=== PATIENT | male | born 1960 | race Caucasian/White ===

== ENCOUNTER 2018-03-27 11:01 | Emergency (ER) | payer BC ==
[2018-03-27] MEDS ORDERED: Sodium Chloride 0.9% 10 ML Syringe FLUSH PRN (11:16)
[2018-03-27] MEDS ORDERED: cefTRIAXone 2 GM in Sodium Chloride 0.9% 50 ML IV ONE (11:18)
--- NOTE | 2018-03-27 11:20 | EDM.PDOC ---
ED HPI GENERAL MEDICAL PROBLEM - General Chief Complaint: ENT Problem Stated Complaint: INFECTED TOOTH, FACE SWOLLEN Time Seen by Provider: 03/27/18 11:05 Source of Information: Reports: Patient History Limitations: Reports: No Limitations - History of Present Illness INITIAL COMMENTS - FREE TEXT/NARRATIVE: fractured tooth, bottom right side; and noticed pain, swelling and ?fever yesterday significant swelling Decreased appetite is a smoker doesn't take any prescribed medications. Onset: Gradual Duration: Day(s): (5) Location: Reports: Head (right side, lower jaw) Quality: Reports: Ache, Throbbing Severity: Severe - Related Data Allergies Allergy/AdvReac Type Severity Reaction Status Date / Time No Known Allergies Allergy Verified 03/27/18 11:14 Home Meds: Home Meds Ibuprofen 400 mg PO ASDIRECTED PRN 09/25/16 [History] Past Medical History HEENT History: Reports: Impaired Vision Musculoskeletal History: Reports: Fracture - Infectious Disease History Infectious Disease History: Reports: Chicken Pox, Measles - Past Surgical History GI Surgical History: Reports: Hernia, Inguinal Social & Family History - Caffeine Use Caffeine Use: Reports: Coffee, Tea ED ROS GENERAL - Review of Systems Review Of Systems: See Below Constitutional: Reports: Fever, Fatigue, Decreased Appetite HEENT: Reports: Dental Pain, Other (jaw pain, right sided sinus pain) Respiratory: Reports: No Symptoms Cardiovascular: Reports: No Symptoms GI/Abdominal: Reports: No Symptoms Skin: Reports: No Symptoms Neurological: Reports: Headache ED EXAM, GENERAL - Physical Exam Exam: See Below Exam Limited By: No Limitations General Appearance: Alert, WD/WN Throat/Mouth: No Airway Compromise, Other (fractuered lower right molar, poor dentition, swelling to the right side of face, substantial) Head: Facial Swelling Neck: Normal Inspection, Supple, Non-Tender, Full Range of Motion Respiratory/Chest: Lungs Clear, Normal Breath Sounds Cardiovascular: Regular Rate, Rhythm GI/Abdominal: Normal Bowel Sounds Extremities: Normal Inspection, Normal Range of Motion Neurological: Alert, Oriented, CN II-XII Intact, Normal Cognition, Normal Gait Psychiatric: Normal Affect, Normal Mood Skin Exam: Warm, Dry Course - Vital Signs Last Recorded V/S: Last Vital Signs Temp 97.5 F 03/27/18 11:18 Pulse 89 03/27/18 11:18 Resp 16 03/27/18 11:18 BP 185/102 H 03/27/18 11:18 Pulse Ox 97 03/27/18 11:18 - Orders/Labs/Meds Orders: Active Orders 24 hr Category Date Time Status Peripheral IV Care [RC] . DIRECTED Care 03/27/18 11:18 Active Max Facial Sinus w Cont [CT] Stat Exams 03/27/18 11:16 Taken Peripheral IV Insertion Adult [OM.PC] Stat Oth 03/27/18 11:16 Ordered Labs: Laboratory Tests 03/27/18 03/27/18 Range/Units 11:34 11:34 WBC 11.1 H (4.5-11.0) K/uL RBC 4.80 (4.30-5.90) M/uL Hgb 15.5 H (12.0-15.0) g/dL Hct 44.1 (40.0-54.0) % MCV 92 (80-98) fL MCH 32 H (27-31) pg MCHC 35 (32-36) % Plt Count 221 (150-400) K/uL Neut % (Auto) 75 H (36-66) % Lymph % (Auto) 14 L (24-44) % Morrill % (Auto) 10 H (2-6) % Eos % (Auto) 1 L (2-4) % Baso % (Auto) 1 (0-1) % Sodium 134 L (140-148) mmol/L Potassium 3.9 (3.6-5.2) mmol/L Chloride 96 L (100-108) mmol/L Carbon Dioxide 27 (21-32) mmol/L Anion Gap 14.9 H (5.0-14.0) mmol/L BUN 8 (7-18) mg/dL Creatinine 0.7 L (0.8-1.3) mg/dL Est Cr Clr Drug Dosing TNP Estimated GFR (MDRD) > 60 (>60) Glucose 203 H (74-106) mg/dL Calcium 9.3 (8.5-10.1) mg/dL Total Bilirubin 1.3 H (0.2-1.0) mg/dL AST 53 H (15-37) U/L ALT 69 (12-78) U/L Alkaline Phosphatase 131 H (46-116) U/L Total Protein 7.4 (6.4-8.2) g/dL Albumin 3.8 (3.4-5.0) g/dL Globulin 3.6 H (2.3-3.5) g/dL Albumin/Globulin Ratio 1.1 L (1.2-2.2) Meds: Medications Discontinued Medications Generic Name Dose Route Start Last Admin Trade Name Nolberto PRN Reason Stop Dose Admin Dexamethasone 10 mg 03/27/18 13:29 03/27/18 13:38 Dexamethasone IVPUSH 03/27/18 13:30 10 mg ONETIME ONE Administration Ceftriaxone Sodium 2 gm/ 50 mls @ 100 mls/hr 03/27/18 11:18 03/27/18 12:32 Sodium Chloride IV 03/27/18 11:47 100 mls/hr ONETIME ONE Administration Sodium Chloride 100 mls @ 3.5 mls/sec 03/27/18 11:33 03/27/18 12:09 Normal Saline IV 03/27/18 11:34 2 mls/sec ONETIME ONE Administration Sodium Chloride 1,000 mls @ 999 mls/hr 03/27/18 12:30 03/27/18 12:32 Normal Saline IV 999 mls/hr ASDIRECTED WESLY Administration Iopamidol 100 ml 03/27/18 11:45 03/27/18 12:09 Isovue-300 (61%) IV 03/27/18 23:00 100 ml . DIRECTED WESLY Administration Sodium Chloride 10 ml 03/27/18 11:16 Saline Flush FLUSH ASDIRECTED PRN Keep Vein Open Sodium Chloride 10 ml 03/27/18 11:33 03/27/18 12:09 Saline Flush FLUSH 03/27/18 11:34 10 ml ONETIME ONE Administration - Re-Assessments/Exams Free Text/Narrative Re-Assessment/Exam: 03/27/18 12:[address] just went to CT Labs reviewed; 03/27/18 15:04 given 2 g of Rocephin 10mg IV decadron Departure - Departure Time of Disposition: 14:15 Disposition: Home, Self-Care 01 Condition: Fair Clinical Impression: Abscess, dental, Myositis Sinusitis Qualifiers: Sinusitis location: maxillary Chronicity: acute Recurrence: recurrent Qualified Code(s): J01.01 - Acute recurrent maxillary sinusitis - Discharge Information Instructions: Dental Abscess, [id number] Referrals: PCP,None [Primary Care Provider] - Forms: ED Department Discharge Additional Instructions: Please show up to the dental clinic at 8:15 tomorrow morning; Antibiotics as directed as well as the medrol dose yandel (will help with pain and swelling) If symptoms worsen, return to ER for further evaluation (difficulty swallowing) Do not drink or drive while taking pain medications, this can cause serious damage and even Your dental abscess is severe. Do not miss your dental appointment or you can also have serious health consequences and even . Push fluids ED Communication - ED Communication Date/Time Date: 03/27/18 (0579) - Discussed Case With (1) Discussed Case With (1): Other (ENT Dr. Hdz; recommendation for steroid, antibiotic. He needs to see oral surgeon but does recommend seeing dentist in the morning; as long as patient can swallow, he can go home but stressed the importance of being seen tomorrow.) - Problem List & Annotations (1) Abscess, dental SNOMED Code(s): 585521204 Code(s): K04.7 - PERIAPICAL ABSCESS WITHOUT SINUS Status: Acute Priority : High (2) Sinusitis SNOMED Code(s): 43676773 Code(s): J32.9 - CHRONIC SINUSITIS, UNSPECIFIED Status: Acute Priority: High Qualifiers: Sinusitis location: maxillary Chronicity: acute Recurrence: recurrent Qualified Code(s): J01.01 - Acute recurrent maxillary sinusitis - Problem List Review Problem List Initiated/Reviewed/Updated: Yes - My Orders Last 24 Hours: My Active Orders 03/27/18 11:16 Max Facial Sinus w Cont [CT] Stat Peripheral IV Insertion Adult [OM.PC] Stat 03/27/18 11:18 Peripheral IV Care [RC] . DIRECTED - Assessment/Plan Last 24 Hours: My Active Orders 03/27/18 11:16 Max Facial Sinus w Cont [CT] Stat Peripheral IV Insertion Adult [OM.PC] Stat 03/27/18 11:18 Peripheral IV Care [RC] . DIRECTED
[2018-03-27 11:25] VITALS: BP 185/102
[2018-03-27] MEDS ORDERED: Sodium Chloride 0.9% 100 ML IV ONE (11:33)
[2018-03-27] MEDS ORDERED: Sodium Chloride 0.9% 10 ML Syringe FLUSH ONE (11:33)
[2018-03-27] MEDS ORDERED: Iopamidol 612 MG/ML 100 ML Bottle IV SCH (11:45)
[2018-03-27] MEDS ORDERED: Sodium Chloride 0.9% 1,000 ML IV SCH (12:30)
[2018-03-27] MEDS ORDERED: Dexamethasone 4 MG/ML SDV IVPUSH ONE (13:29)
== END 2018-03-27 13:54 | disposition home or self-care (01) ==
LOC: JP.ED 11:01
DX: K04.7 Periapical abscess without sinus (principal); K03.81 Cracked tooth; M60.9 Myositis, unspecified; J01.01 Acute recurrent maxillary sinusitis
CPT/HCPCS: 36415; 70487; 80053; 85025; 96365; 96375; 99284; J0696; J1100; J7030; J7050; Q9967

== ENCOUNTER 2021-04-15 17:02 | Emergency (ER) | payer OTHER, BC ==
[2021-04-15] MEDS ORDERED: Lidocaine 5% 700 MG Patch TRDERM ONE (18:30)
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
[2021-04-15 18:52] VITALS: BP 166/98; PULSE 73
== END 2021-04-15 19:09 | disposition home or self-care (01) ==
LOC: JP.ED 17:02
DX: S13.4XXA Sprain of ligaments of cervical spine, initial encounter (principal); M62.830 Muscle spasm of back; I10 Essential (primary) hypertension; F17.200 Nicotine dependence, unspecified, uncomplicated; V89.2XXA Person injured in unspecified motor-vehicle accident, traffic, initial encounter; Y92.410 Unspecified street and highway as the place of occurrence of the external cause
CPT/HCPCS: 99283; A9270

== ENCOUNTER 2021-06-07 16:46 | Emergency (ER) | payer BC ==
[2021-06-07 17:01] VITALS: BP 127/88; PULSE 91
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
== END 2021-06-07 17:20 ==
LOC: JP.ED 16:46
DX: F10.120 Alcohol abuse with intoxication, uncomplicated (principal); I10 Essential (primary) hypertension
CPT/HCPCS: 99283

== ENCOUNTER 2022-06-18 15:20 | Emergency (ER) | payer BC ==
[2022-06-18 17:01] VITALS: BP 148/81; PULSE 76
== END 2022-06-18 20:23 | disposition home or self-care (01) ==
LOC: JP.ED 15:20
DX: K59.01 Slow transit constipation (principal); I10 Essential (primary) hypertension; E11.9 Type 2 diabetes mellitus without complications; F17.210 Nicotine dependence, cigarettes, uncomplicated; Z79.899 Other long term (current) drug therapy; Z79.4 Long term (current) use of insulin; Z79.82 Long term (current) use of aspirin; Z79.84 Long term (current) use of oral hypoglycemic drugs
CPT/HCPCS: 74018; 74018-26; 99284

== ENCOUNTER 2022-07-21 21:27 | Inpatient (IN) | payer BC ==
[~2022-07-21 21:27] MED LIST: 50% Dextrose in Water 50 ML Syringe ONE
[2022-07-21 22:33] LABS: ESTIMATED GFR 69 mL/min (>60)
[2022-07-21] MEDS ORDERED: 50% Dextrose in Water 50 ML Syringe IVPUSH PRN ×2 (22:48→22:50)
[2022-07-21] MEDS ORDERED: Glucagon,Human Recombinant 1 MG Vial IM PRN ×2 (22:48→22:50)
[2022-07-21] MEDS ORDERED: Insulin Regular, Human 100 Units/ML 3 ML Vial SUBCUT ONE (22:48)
[2022-07-21] MEDS ORDERED: Insulin Regular, Human 100 Units/ML 3 ML Vial IVPUSH ONE (22:50)
[2022-07-21] MEDS ORDERED: Potassium Chloride 20 MEQ in Premix Bag 1 BAG IV ONE (22:51)
[2022-07-21] MEDS ORDERED: Sodium Chloride 0.9% 1,000 ML IV SCH (23:00)
[2022-07-21] MEDS ORDERED: Dextrose 5% in Water 1,000 ML IV SCH (23:00)
[2022-07-21] MEDS ORDERED: Potassium Chloride 10 MEQ in Premix Bag 1 BAG IV ONE ×2 (23:19→23:30)
[2022-07-21] MEDS ORDERED: Hyaluronidase, Human Recombinant 150 Units/1 ML SDV SUBCUT ONE (23:45)
[2022-07-22] MEDS: Hyaluronidase, Human Recombinant 150 Units/1 ML SDV SUBCUT ONE ×2 (00:01→04:20)
[2022-07-22] MEDS ORDERED: methylPREDNISolone Sodium Succinate 125 MG/2 ML SDV IVPUSH ONE (00:04)
[2022-07-22] MEDS ORDERED: Potassium Chloride 10 MEQ in Premix Bag 1 BAG IV ONE (00:30)
[2022-07-22 00:49] LABS: ESTIMATED GFR 110 mL/min (>60)
[2022-07-22] MEDS ORDERED: Nicotine 14 MG/24 Hr Patch TRDERM ONE (01:14)
[2022-07-22] MEDS ORDERED: Ondansetron 4 MG Tab.DIS PO PRN (03:21)
[2022-07-22] MEDS ORDERED: Magnesium Hydroxide 400 MG/5 ML Susp 30 ML Cup PO PRN (03:21)
[2022-07-22] MEDS ORDERED: Ondansetron 4 MG/2 ML SDV IV PRN (03:21)
[2022-07-22] MEDS ORDERED: Nicotine 14 MG/24 Hr Patch TRDERM PRN (03:21)
[2022-07-22] MEDS ORDERED: Albuterol 0.083% 2.5 MG/3 ML Neb Soln NEB PRN (03:21)
[2022-07-22] MEDS: NS + KCl 20mEq/L 1,000 ML IV SCH ×2 (03:38→15:59)
[2022-07-22] MEDS: Potassium Chloride 10 MEQ in Premix Bag 1 BAG IV SCH ×3 (03:40→06:20)
[2022-07-22] MEDS ORDERED: Iopamidol 612 MG/ML 100 ML Bottle IV STA (05:01)
[2022-07-22] MEDS ORDERED: Sodium Chloride 0.9% 50 ML IV STA (05:02)
[2022-07-22] MEDS: Rosuvastatin 10 MG Tab PO SCH (08:23)
[2022-07-22] MEDS: Aspirin 81 MG Tab.Chew PO SCH (08:23)
[2022-07-22] MEDS ORDERED: Glucagon,Human Recombinant 1 MG Vial IM PRN ×3 (09:11→13:57)
[2022-07-22] MEDS ORDERED: Insulin Lispro 100 Unit/ML 3 ML KwikPen SUBCUT ONE ×3 (09:30→13:57)
[2022-07-22] MEDS: Magnesium Sulfate/Water 2 GM in Premix Bag 1 BAG IV SCH ×2 (10:05→15:57)
[2022-07-22] MEDS ORDERED: 50% Dextrose in Water 50 ML Syringe IVPUSH PRN ×2 (10:16→13:57)
[2022-07-22] MEDS: Acetaminophen 325 MG Tab PO PRN ×2 (10:54→21:27)
[2022-07-22] MEDS ORDERED: Hydrocortisone Sodium Succinate 100 MG/2 ML SDV IVPUSH ONE (13:33)
[2022-07-22] MEDS: Insulin Lispro 100 Unit/ML 3 ML KwikPen SUBCUT SCH ×2 (16:40→21:21)
[2022-07-22] MEDS: Pantoprazole 40 MG Vial IVPUSH SCH (17:17)
[2022-07-23] MEDS: NS + KCl 20mEq/L 1,000 ML IV SCH ×2 (01:08→07:52)
[2022-07-23] MEDS: Pantoprazole 40 MG Vial IVPUSH SCH (05:41)
[2022-07-23 05:47] LABS: ESTIMATED GFR 110 mL/min (>60)
[2022-07-23] MEDS ORDERED: Glycopyrrolate 0.2 MG/ML 2 ML SDV IVPUSH ONE ×2 (08:30→11:30)
[2022-07-23] MEDS ORDERED: Propofol 200 MG/20 ML SDV ONE (08:56)
[2022-07-23] MEDS ORDERED: Midazolam 1 MG/ML 2 ML SDV ONE (08:56)
[2022-07-23] MEDS ORDERED: Glycopyrrolate 0.2 MG/ML 2 ML SDV ONE (09:12)
[2022-07-23] MEDS ORDERED: Glucagon,Human Recombinant 1 MG Vial IM PRN (10:50)
[2022-07-23] MEDS ORDERED: 50% Dextrose in Water 50 ML Syringe IVPUSH PRN (10:50)
[2022-07-23] MEDS: Insulin Lispro 100 Unit/ML 3 ML KwikPen SUBCUT SCH ×4 (11:01→21:12)
[2022-07-23] MEDS: Aspirin 81 MG Tab.Chew PO SCH (11:04)
[2022-07-23] MEDS: Rosuvastatin 10 MG Tab PO SCH (11:04)
[2022-07-23] MEDS ORDERED: Potassium Chloride 20 MEQ Tab.ER PO ONE (12:15)
[2022-07-23] MEDS ORDERED: Insulin Lispro Protamine/Lispro 75-25 100 Units/ML 10 ML Vial SUBCUT SCH (16:30)
[2022-07-23] MEDS ORDERED: metFORMIN 500 MG Tab PO SCH (17:00)
[2022-07-24] MEDS ORDERED: Pantoprazole 40 MG Tab.CR PO SCH (07:30)
[2022-07-24] MEDS: 50% Dextrose in Water 50 ML Syringe IVPUSH PRN ×4 (07:31→12:49)
[2022-07-24] MEDS ORDERED: Morphine 2 MG/ML SYRINGE IVPUSH ONE (08:31)
[2022-07-24 09:03] LABS: ESTIMATED GFR 110 mL/min (>60)
[2022-07-24] MEDS ORDERED: Sodium Chloride 0.9% 1,000 ML IV SCH (09:15)
[2022-07-24] MEDS ORDERED: Dextrose 5%-0.9% NaCl 1,000 ML IV SCH ×3 (09:15→14:45)
[2022-07-24] MEDS ORDERED: Succinylcholine 200 MG/10 ML MDV ONE (09:22)
[2022-07-24] MEDS ORDERED: Propofol 200 MG/20 ML SDV ONE (09:22)
[2022-07-24] MEDS ORDERED: Morphine 2 MG/ML SYRINGE IVPUSH PRN (09:41)
[2022-07-24] MEDS ORDERED: Sodium Chloride 0.9% 100 ML IV ONE (09:58)
[2022-07-24] MEDS ORDERED: Sodium Chloride 0.9% 10 ML Syringe FLUSH PRN (09:58)
[2022-07-24] MEDS ORDERED: Heparin Sodium 5,000 UNITS in Sodium Chloride 0.9% 500 ML IV SCH (10:00)
[2022-07-24] MEDS ORDERED: Iopamidol 755 Mg/ML 100 ML Bottle IV SCH (10:00)
[2022-07-24] MEDS: propofoL 100 ML IV SCH ×2 (10:01→22:04)
[2022-07-24] MEDS: Levofloxacin/Dextrose 5%-Water 750 MG in Premix Bag 1 BAG IV SCH (10:02)
[2022-07-24] MEDS: Albuterol/Ipratropium 3.0-0.5 MG/3 ML Neb Soln NEB SCH ×3 (10:39→21:52)
[2022-07-24] MEDS ORDERED: Pantoprazole 40 MG Vial IVPUSH SCH (11:00)
[2022-07-24] MEDS ORDERED: 50% Dextrose in Water 50 ML Syringe IVPUSH ONE (12:08)
[2022-07-24] MEDS: Insulin Lispro 100 Unit/ML 3 ML KwikPen SUBCUT SCH ×2 (13:02→19:12)
[2022-07-24] MEDS ORDERED: DEXTROSE IV SCH ×6 (13:30→18:00)
[2022-07-24] MEDS ORDERED: WATER IV SCH ×6 (13:30→18:00)
[2022-07-24] MEDS ORDERED: SODIUM CHLORIDE IV SCH ×6 (13:30→18:00)
[2022-07-24] MEDS ORDERED: Norepinephrine Bit/D5W Premix 250 ML ONE (17:52)
[2022-07-24] MEDS: Norepinephrine Bit/D5W Premix 4 MG in Premix Bag 1 BAG IV SCH (17:57)
[2022-07-24] MEDS ORDERED: Sodium Chloride 23.4% 154 MEQ in Dextrose 10% in Water 1,000 ML IV SCH ×2 (18:00)
[2022-07-24] MEDS: Hydrocortisone Sodium Succinate 100 MG/2 ML SDV IVPUSH SCH (18:10)
[2022-07-24] MEDS: SODIUM CHLORIDE IV SCH (20:20)
[2022-07-24] MEDS: WATER IV SCH (20:20)
[2022-07-24] MEDS: DEXTROSE IV SCH (20:20)
[2022-07-25] MEDS ORDERED: Norepinephrine Bit/D5W Premix 250 ML ONE (00:15)
[2022-07-25] MEDS: Insulin Lispro 100 Unit/ML 3 ML KwikPen SUBCUT SCH ×2 (00:22→06:21)
[2022-07-25] MEDS: SODIUM CHLORIDE IV SCH ×4 (00:22→07:03)
[2022-07-25] MEDS: WATER IV SCH ×4 (00:22→07:03)
[2022-07-25] MEDS: DEXTROSE IV SCH ×4 (00:22→07:03)
[2022-07-25] MEDS: Norepinephrine Bit/D5W Premix 4 MG in Premix Bag 1 BAG IV SCH ×3 (00:50→11:25)
[2022-07-25 05:35] LABS: ESTIMATED GFR 105 mL/min (>60)
[2022-07-25] MEDS ORDERED: SODIUM CHLORIDE IV SCH (06:00)
[2022-07-25] MEDS ORDERED: DEXTROSE IV SCH (06:00)
[2022-07-25] MEDS ORDERED: WATER IV SCH (06:00)
[2022-07-25] MEDS: Hydrocortisone Sodium Succinate 100 MG/2 ML SDV IVPUSH SCH (06:20)
[2022-07-25] MEDS ORDERED: Magnesium Sulfate/Water 2 GM in Premix Bag 3 BAG IV SCH (06:30)
[2022-07-25] MEDS: Albuterol/Ipratropium 3.0-0.5 MG/3 ML Neb Soln NEB SCH ×3 (06:59→11:10)
[2022-07-25] MEDS ORDERED: Magnesium Sulfate/Water 50 ML IV SCH (07:00)
[2022-07-25] MEDS ORDERED: Magnesium Sulfate/Water 2 GM in Premix Bag 1 BAG IV SCH (08:00)
[2022-07-25] MEDS: propofoL 100 ML IV SCH (08:17)
[2022-07-25] MEDS: Levofloxacin/Dextrose 5%-Water 750 MG in Premix Bag 1 BAG IV SCH (10:06)
[2022-07-25] MEDS ORDERED: Albuterol/Ipratropium 3.0-0.5 MG/3 ML Neb Soln NEB ONE (11:08)
[2022-07-25] MEDS ORDERED: Albuterol/Ipratropium 3.0-0.5 MG/3 ML Neb Soln ONE (11:08)
[2022-07-25 13:24] VITALS: BP 93/57; PULSE 95
[2022-07-28 11:11] LABS: HBSAG SCREEN Negative (Negative); HCV AB <0.1 s/co ratio (0.0-0.9); HEP A AB, IGM Negative (Negative); HEP B CORE AB, IGM Negative (Negative)
== END 2022-07-25 13:12 | DRG 420 ==
LOC: JP.ED 21:27 → UNDOADMIN 07-22 02:09 → JP.ICU 07-22 02:09
PROVIDERS: ADMIT Internal Medicine; ATTEND Internal Medicine
PROC: 5A1935Z Respiratory Ventilation, Less than 24 Consecutive Hours (ICD-10-PCS; principal; 2022-07-24)
PROC: 0BH17EZ Insertion of Endotracheal Airway into Trachea, Via Natural or Artificial Opening (ICD-10-PCS; 2022-07-24)
PROC: 03HB33Z Insertion of Infusion Device into Right Radial Artery, Percutaneous Approach (ICD-10-PCS; 2022-07-24)
PROC: 3E033XZ Introduction of Vasopressor into Peripheral Vein, Percutaneous Approach (ICD-10-PCS; 2022-07-24)
DX: E11.649 Type 2 diabetes mellitus with hypoglycemia without coma (principal); J96.01 Acute respiratory failure with hypoxia; J69.0 Pneumonitis due to inhalation of food and vomit; J96.02 Acute respiratory failure with hypercapnia; J90 Pleural effusion, not elsewhere classified; N17.9 Acute kidney failure, unspecified; E87.1 Hypo-osmolality and hyponatremia; E87.6 Hypokalemia; Z20.822 Contact with and (suspected) exposure to COVID-19; Z68.1 Body mass index [BMI] 19.9 or less, adult; H54.7 Unspecified visual loss; K59.09 Other constipation; I10 Essential (primary) hypertension; R63.4 Abnormal weight loss; E11.65 Type 2 diabetes mellitus with hyperglycemia; Z79.82 Long term (current) use of aspirin; Z79.4 Long term (current) use of insulin; Z79.84 Long term (current) use of oral hypoglycemic drugs; Z98.49 Cataract extraction status, unspecified eye
CPT/HCPCS: 36415; 36600; 51702; 70450; 71045; 71045-26; 71275; 71275-26; 74177; 74181; 74181-26; 80048; 80053; 80074; 80305-QW; 80307; 81001; 82105; 82533; 82550; 82728; 82803; 82947; 83550; 83605; 83735; 84443; 84484; 85025; 85027; 85379; 86140; 86618; 87081; 93005; 94002; 94003; 94640; 97110-GP; 97163-GP; A9270-GY; C9113; J0330; J0713; J1644; J1720; J1815; J1815-GY; J1956; J2250; J2270; J2704; J2930; J3470; J3475; J3480; J3490; J7030; J7040; J7060; J7620; Q9967; U0002

== ENCOUNTER 2022-11-08 14:08 | Emergency (ER) | payer BC ==
[2022-11-08] MEDS ORDERED: Magnesium Sulfate/Water 2 GM in Premix Bag 1 BAG IV ONE (15:35)
[2022-11-08] MEDS ORDERED: Potassium Chloride 20 MEQ Tab.ER PO ONE (15:35)
[2022-11-08] MEDS ORDERED: Dextrose 5%-0.9% NaCl with KCl 1,000 ML IV SCH (15:45)
[2022-11-08 17:57] VITALS: BP 145/87; PULSE 70
== END 2022-11-08 18:10 | disposition home or self-care (01) ==
LOC: JP.ED 14:08
DX: E11.649 Type 2 diabetes mellitus with hypoglycemia without coma (principal); E46 Unspecified protein-calorie malnutrition; A08.4 Viral intestinal infection, unspecified; M62.81 Muscle weakness (generalized); E87.6 Hypokalemia; E87.1 Hypo-osmolality and hyponatremia; E83.110 Hereditary hemochromatosis; I10 Essential (primary) hypertension; J44.9 Chronic obstructive pulmonary disease, unspecified; F17.210 Nicotine dependence, cigarettes, uncomplicated; Z79.82 Long term (current) use of aspirin; Z79.4 Long term (current) use of insulin; Z79.899 Other long term (current) drug therapy; Z74.09 Other reduced mobility; Z68.1 Body mass index [BMI] 19.9 or less, adult
CPT/HCPCS: 36415; 80048; 82947; 83735; 84443; 85025; 96365; 96366; 96368; 99284; A9270; J3475; J3480

== ENCOUNTER 2024-12-28 13:53 | Inpatient (IN) | payer MEDICARE, OTHER ==
[2024-12-28 14:42] LABS: BASOPHILS ABSOLUTE AUTO 0.04 K/uL (0.00-0.10); BASOPHILS PERCENT AUTO 0.3 % (0.1-1.3); EOSINOPHILS PERCENT AUTO 0.1 % (0.0-5.4); HEMATOCRIT 38.4 % (38.4-49.7); HEMOGLOBIN 12.9 g/dL (12.9-16.9); IMMATURE GRAN ABSOLUTE AUTO 0.07 K/uL (0.00-0.23); IMMATURE GRAN PERCENT AUTO 0.5 % (0.0-0.7); LYMPHOCYTES ABSOLUTE AUTO 1.06 K/uL (0.8-3.3); LYMPHOCYTES PERCENT AUTO 7.4 % (11.4-47.7); MEAN CORPUSCULAR HEMOGLOBIN 30.9 pg (31.6-35.5); MEAN CORPUSCULAR HGB CONC 33.6 g/dL (31.6-35.5); MEAN CORPUSCULAR VOLUME 91.9 fL (81.4-99.0); MONOCYTES ABSOLUTE AUTO 0.91 K/uL (0.20-0.90); MONOCYTES PERCENT AUTO 6.3 % (3.3-12.6); NEUTROPHILS ABSOLUTE AUTO 12.26 K/uL (1.0-7.6); NEUTROPHILS PERCENT AUTO 85.4 % (40.0-78.1); PLATELET COUNT,PLT 384 K/uL (130-375); RED BLOOD CELL COUNT 4.18 M/uL (4.14-5.76); WHITE BLOOD CELL COUNT,WBC 14.4 K/uL (3.2-11.0)
[2024-12-28 14:43] LABS: EOSINOPHILS ABSOLUTE AUTO 0.02 K/uL (0.00-0.40)
[2024-12-28 15:06] LABS: ANION GAP 9.7 mmol/L (5.0-14.0); BLOOD UREA NITROGEN,BUN 10 mg/dL (7-18); CALCIUM 9.2 mg/dL (8.5-10.1); CARBON DIOXIDE,CO2 31 mmol/L (21-32); CHLORIDE,CL 96 mmol/L (100-108); CREATININE 0.7 mg/dL (0.8-1.3); EST CRCL DRUG DOSING (CG) 70.45 mL/min; ESTIMATED GFR 103 mL/min (>60); GLUCOSE RANDOM 270 mg/dL (74-106); POTASSIUM,K 3.7 mmol/L (3.6-5.2); SODIUM,NA 133 mmol/L (140-148); TROPONIN I HIGH SENSITIVITY < 4.0 pg/mL (<=60.3)
[2024-12-28 15:08] LABS: LACTIC ACID 1.5 mmol/L (0.4-2.0)
[2024-12-28] MEDS: cefTRIAXone 2 GM in Sodium Chloride 0.9% 50 ML IV ONE (15:22)
[2024-12-28] MEDS: Sodium Chloride 0.9% 1,000 ML IV ONE (15:22)
[2024-12-28] MEDS: Sodium Chloride 0.9% 10 ML Syringe FLUSH PRN (15:23)
[2024-12-28] MEDS: Sodium Chloride 0.9% 80 ML IV SCH (15:52)
[2024-12-28] MEDS: Iopamidol 612 MG/ML 100 ML Bottle IV PRN (15:52)
[2024-12-28] MEDS ORDERED: LORazepam 2 MG/ML SDV IVPUSH PRN (16:55)
[2024-12-28] MEDS ORDERED: Albuterol 0.083% 2.5 MG/3 ML Neb Soln NEB PRN (16:55)
[2024-12-28] MEDS ORDERED: Acetaminophen/HYDROcodone 325-5 MG Tab PO PRN (16:55)
[2024-12-28] MEDS ORDERED: Morphine 2 MG/ML SYRINGE IVPUSH PRN (16:55)
[2024-12-28] MEDS ORDERED: Magnesium Hydroxide 400 MG/5 ML Susp 30 ML Cup PO PRN (16:55)
[2024-12-28] MEDS ORDERED: Sennosides/Docusate Sodium 50-8.6 MG Tab PO PRN (16:55)
[2024-12-28] MEDS ORDERED: Ondansetron 4 MG/2 ML SDV IV PRN (16:55)
[2024-12-28] MEDS ORDERED: Ondansetron 4 MG Tab.DIS PO PRN (16:55)
[2024-12-28] MEDS ORDERED: Insulin Lispro 100 Unit/ML 3 ML KwikPen SUBCUT SCH (17:15)
[2024-12-28 17:17] LABS: HEMOGLOBIN A1C 9.2 % (4.5-6.2)
[2024-12-28] MEDS: Ampicillin/Sulbactam Na 3 GM in Sodium Chloride 0.9% 100 ML IV SCH (18:08)
[2024-12-28] MEDS: Sodium Chloride 0.9% 1,000 ML IV SCH (18:08)
[2024-12-28] MEDS: Sodium Chloride 0.9% 10 ML Syringe FLUSH ONE (19:40)
[2024-12-28] MEDS: Magnesium Oxide 400 MG Tab PO SCH (20:51)
[2024-12-28] MEDS: Melatonin 3 MG Tab PO SCH (20:51)
[2024-12-28] MEDS: Acetaminophen 325 MG Tab PO PRN (23:43)
[2024-12-29 06:07] LABS: HEMATOCRIT 35.7 % (38.4-49.7); HEMOGLOBIN 11.8 g/dL (12.9-16.9); MEAN CORPUSCULAR HEMOGLOBIN 30.3 pg (31.6-35.5); MEAN CORPUSCULAR HGB CONC 33.1 g/dL (31.6-35.5); MEAN CORPUSCULAR VOLUME 91.8 fL (81.4-99.0); RED BLOOD CELL COUNT 3.89 M/uL (4.14-5.76); WHITE BLOOD CELL COUNT,WBC 14.1 K/uL (3.2-11.0)
[2024-12-29 06:27] LABS: A/G RATIO 0.4 (1.2-2.2); ALANINE AMINOTRANSFERASE,ALT 17 U/L (12-78); ALBUMIN 1.7 g/dL (3.4-5.0); ALKALINE PHOSPHATASE 108 U/L (46-116); ASPARTATE AMNIOTRANSFERASE,AST 33 U/L (15-37); BILIRUBIN TOTAL 0.3 mg/dL (0.2-1.0); BLOOD UREA NITROGEN,BUN 7 mg/dL (7-18); C-REACTIVE PROTEIN 10.52 mg/dL (<0.50); CALCIUM 8.3 mg/dL (8.5-10.1); CARBON DIOXIDE,CO2 28 mmol/L (21-32); CHLORIDE,CL 100 mmol/L (100-108); CREATININE 0.5 mg/dL (0.8-1.3); EST CRCL DRUG DOSING (CG) 98.63 mL/min; ESTIMATED GFR 114 mL/min (>60); GLUCOSE RANDOM 98 mg/dL (74-106); POTASSIUM,K 3.3 mmol/L (3.6-5.2); PROTEIN TOTAL,TP 5.8 g/dL (6.4-8.2); SODIUM,NA 139 mmol/L (140-148)
[2024-12-29 06:30] LABS: ANION GAP 14.3 mmol/L (5.0-14.0)
[2024-12-29] MEDS: Insulin NPH HUM/REG Insulin HM 100 UNIT/ML 3 ML Vial SQ SCH (08:20)
[2024-12-29] MEDS: Aspirin 81 MG Tab.Chew PO SCH (08:22)
[2024-12-29] MEDS: Multivitamins with Iron/Calcium/Folic Acid/Minerals Tab PO SCH (08:22)
[2024-12-29] MEDS: Vitamin B Complex Tab PO SCH (08:22)
[2024-12-29] MEDS: atorvaSTATin 10 MG Tab PO SCH (09:12)
[2024-12-29] MEDS: Potassium Chloride 20 MEQ Tab.ER PO SCH (10:55)
[2024-12-29] MEDS: Nicotine 21 MG/24 Hr Patch TRDERM SCH (22:07)
[2024-12-30 07:43] LABS: BASOPHILS ABSOLUTE AUTO 0.07 K/uL (0.00-0.10); BASOPHILS PERCENT AUTO 0.5 % (0.1-1.3); EOSINOPHILS ABSOLUTE AUTO 0.21 K/uL (0.00-0.40); EOSINOPHILS PERCENT AUTO 1.5 % (0.0-5.4); HEMATOCRIT 35.7 % (38.4-49.7); HEMOGLOBIN 11.9 g/dL (12.9-16.9); IMMATURE GRAN ABSOLUTE AUTO 0.06 K/uL (0.00-0.23); IMMATURE GRAN PERCENT AUTO 0.4 % (0.0-0.7); LYMPHOCYTES ABSOLUTE AUTO 0.76 K/uL (0.8-3.3); LYMPHOCYTES PERCENT AUTO 5.4 % (11.4-47.7); MEAN CORPUSCULAR HEMOGLOBIN 30.5 pg (31.6-35.5); MEAN CORPUSCULAR HGB CONC 33.3 g/dL (31.6-35.5); MEAN CORPUSCULAR VOLUME 91.5 fL (81.4-99.0); MONOCYTES ABSOLUTE AUTO 0.68 K/uL (0.20-0.90); MONOCYTES PERCENT AUTO 4.8 % (3.3-12.6); NEUTROPHILS PERCENT AUTO 87.4 % (40.0-78.1); PLATELET COUNT,PLT 317 K/uL (130-375); WHITE BLOOD CELL COUNT,WBC 14.1 K/uL (3.2-11.0)
[2024-12-30 07:58] LABS: A/G RATIO 0.4 (1.2-2.2); ALANINE AMINOTRANSFERASE,ALT 24 U/L (12-78); ALBUMIN 1.6 g/dL (3.4-5.0); ALKALINE PHOSPHATASE 116 U/L (46-116); ANION GAP 11.8 mmol/L (5.0-14.0); ASPARTATE AMNIOTRANSFERASE,AST 37 U/L (15-37); BILIRUBIN TOTAL 0.2 mg/dL (0.2-1.0); BLOOD UREA NITROGEN,BUN 5 mg/dL (7-18); C-REACTIVE PROTEIN 9.24 mg/dL (<0.50); CALCIUM 8.2 mg/dL (8.5-10.1); CARBON DIOXIDE,CO2 29 mmol/L (21-32); CHLORIDE,CL 97 mmol/L (100-108); CREATININE 0.5 mg/dL (0.8-1.3); EST CRCL DRUG DOSING (CG) 98.63 mL/min; ESTIMATED GFR 114 mL/min (>60); GLUCOSE RANDOM 156 mg/dL (74-106); POTASSIUM,K 3.8 mmol/L (3.6-5.2); PROTEIN TOTAL,TP 5.8 g/dL (6.4-8.2); SODIUM,NA 134 mmol/L (140-148)
[2024-12-30] MEDS: metroNIDAZOLE/Normal Saline 500 MG in Premix Bag 1 BAG IV SCH (12:06)
[2024-12-30] MEDS: cefTRIAXone 2 GM in Sodium Chloride 0.9% 50 ML IV SCH (12:07)
[2024-12-30] MEDS: Insulin Lispro 100 Unit/ML 3 ML KwikPen SUBCUT SCH (21:42)
[2024-12-31 05:48] LABS: BASOPHILS ABSOLUTE AUTO 0.05 K/uL (0.00-0.10); BASOPHILS PERCENT AUTO 0.4 % (0.1-1.3); EOSINOPHILS ABSOLUTE AUTO 0.14 K/uL (0.00-0.40); EOSINOPHILS PERCENT AUTO 1.2 % (0.0-5.4); HEMATOCRIT 33.9 % (38.4-49.7); HEMOGLOBIN 11.3 g/dL (12.9-16.9); IMMATURE GRAN ABSOLUTE AUTO 0.04 K/uL (0.00-0.23); IMMATURE GRAN PERCENT AUTO 0.3 % (0.0-0.7); MEAN CORPUSCULAR HEMOGLOBIN 30.7 pg (31.6-35.5); MEAN CORPUSCULAR HGB CONC 33.3 g/dL (31.6-35.5); MEAN CORPUSCULAR VOLUME 92.1 fL (81.4-99.0); MONOCYTES ABSOLUTE AUTO 0.67 K/uL (0.20-0.90); MONOCYTES PERCENT AUTO 5.7 % (3.3-12.6); NEUTROPHILS ABSOLUTE AUTO 9.58 K/uL (1.0-7.6); NEUTROPHILS PERCENT AUTO 81.4 % (40.0-78.1); PLATELET COUNT,PLT 334 K/uL (130-375); RED BLOOD CELL COUNT 3.68 M/uL (4.14-5.76); WHITE BLOOD CELL COUNT,WBC 11.8 K/uL (3.2-11.0)
[2024-12-31 06:05] LABS: A/G RATIO 0.4 (1.2-2.2); ALANINE AMINOTRANSFERASE,ALT 26 U/L (12-78); ALBUMIN 1.6 g/dL (3.4-5.0); ALKALINE PHOSPHATASE 135 U/L (46-116); ASPARTATE AMNIOTRANSFERASE,AST 36 U/L (15-37); BILIRUBIN TOTAL 0.2 mg/dL (0.2-1.0); BLOOD UREA NITROGEN,BUN 7 mg/dL (7-18); C-REACTIVE PROTEIN 8.26 mg/dL (<0.50); CALCIUM 8.3 mg/dL (8.5-10.1); CARBON DIOXIDE,CO2 28 mmol/L (21-32); CHLORIDE,CL 97 mmol/L (100-108); CREATININE 0.5 mg/dL (0.8-1.3); EST CRCL DRUG DOSING (CG) 98.63 mL/min; ESTIMATED GFR 114 mL/min (>60); GLUCOSE RANDOM 266 mg/dL (74-106); POTASSIUM,K 4.3 mmol/L (3.6-5.2); PROTEIN TOTAL,TP 5.9 g/dL (6.4-8.2); SODIUM,NA 132 mmol/L (140-148)
[2024-12-31 06:06] LABS: ANION GAP 11.3 mmol/L (5.0-14.0)
[2025-01-01 06:02] LABS: BASOPHILS ABSOLUTE AUTO 0.06 K/uL (0.00-0.10); BASOPHILS PERCENT AUTO 0.4 % (0.1-1.3); EOSINOPHILS ABSOLUTE AUTO 0.14 K/uL (0.00-0.40); EOSINOPHILS PERCENT AUTO 0.9 % (0.0-5.4); HEMATOCRIT 36.6 % (38.4-49.7); HEMOGLOBIN 12.3 g/dL (12.9-16.9); IMMATURE GRAN ABSOLUTE AUTO 0.06 K/uL (0.00-0.23); IMMATURE GRAN PERCENT AUTO 0.4 % (0.0-0.7); LYMPHOCYTES ABSOLUTE AUTO 1.86 K/uL (0.8-3.3); LYMPHOCYTES PERCENT AUTO 12.3 % (11.4-47.7); MEAN CORPUSCULAR HEMOGLOBIN 30.6 pg (31.6-35.5); MEAN CORPUSCULAR HGB CONC 33.6 g/dL (31.6-35.5); MONOCYTES ABSOLUTE AUTO 0.84 K/uL (0.20-0.90); MONOCYTES PERCENT AUTO 5.6 % (3.3-12.6); NEUTROPHILS ABSOLUTE AUTO 12.13 K/uL (1.0-7.6); NEUTROPHILS PERCENT AUTO 80.4 % (40.0-78.1); PLATELET COUNT,PLT 410 K/uL (130-375); RED BLOOD CELL COUNT 4.02 M/uL (4.14-5.76); WHITE BLOOD CELL COUNT,WBC 15.1 K/uL (3.2-11.0)
[2025-01-01 06:23] LABS: A/G RATIO 0.4 (1.2-2.2); ALANINE AMINOTRANSFERASE,ALT 23 U/L (12-78); ALBUMIN 1.9 g/dL (3.4-5.0); ALKALINE PHOSPHATASE 136 U/L (46-116); ASPARTATE AMNIOTRANSFERASE,AST 30 U/L (15-37); BILIRUBIN TOTAL 0.2 mg/dL (0.2-1.0); BLOOD UREA NITROGEN,BUN 9 mg/dL (7-18); C-REACTIVE PROTEIN 7.09 mg/dL (<0.50); CALCIUM 8.6 mg/dL (8.5-10.1); CARBON DIOXIDE,CO2 27 mmol/L (21-32); CHLORIDE,CL 96 mmol/L (100-108); CREATININE 0.6 mg/dL (0.8-1.3); EST CRCL DRUG DOSING (CG) 82.19 mL/min; ESTIMATED GFR 108 mL/min (>60); GLUCOSE RANDOM 194 mg/dL (74-106); POTASSIUM,K 4.3 mmol/L (3.6-5.2); PROTEIN TOTAL,TP 6.6 g/dL (6.4-8.2); SODIUM,NA 132 mmol/L (140-148)
[2025-01-01 06:31] LABS: ANION GAP 13.3 mmol/L (5.0-14.0)
[2025-01-01 11:02] VITALS: BP 101/59
[2025-01-01 12:06] VITALS: PULSE 81
== END 2025-01-01 15:25 | disposition home or self-care (01) | DRG 177 ==
LOC: JP.ED 13:53 → JP.MS 16:32
PROVIDERS: ADMIT Hospitalist; ATTEND Internal Medicine
DX: R09.02 Hypoxemia (principal); J85.2 Abscess of lung without pneumonia; J85.1 Abscess of lung with pneumonia; J18.9 Pneumonia, unspecified organism; J96.01 Acute respiratory failure with hypoxia; E87.1 Hypo-osmolality and hyponatremia; Z68.1 Body mass index [BMI] 19.9 or less, adult; J44.0 Chronic obstructive pulmonary disease with (acute) lower respiratory infection; E11.9 Type 2 diabetes mellitus without complications; E78.5 Hyperlipidemia, unspecified; F17.210 Nicotine dependence, cigarettes, uncomplicated; R63.4 Abnormal weight loss; F15.90 Other stimulant use, unspecified, uncomplicated; E87.6 Hypokalemia; I10 Essential (primary) hypertension; H54.7 Unspecified visual loss; E83.110 Hereditary hemochromatosis; Z79.82 Long term (current) use of aspirin; Z79.899 Other long term (current) drug therapy; Z79.02 Long term (current) use of antithrombotics/antiplatelets; Z79.4 Long term (current) use of insulin; Z87.81 Personal history of (healed) traumatic fracture; Z98.49 Cataract extraction status, unspecified eye; Z98.890 Other specified postprocedural states
CPT/HCPCS: 36415; 71045 ×2; 71260 ×2; 80048; 83036; 83605; 84484; 85025; 86140; 87040 ×2; 93005; 93010; 96365; 99285 ×2; J0696; J7030; Q9967; 70450; 80053; 82947; 85027; 97162-GP; 97165-GO; 99223; 99231; 99232; 99238; A9270-GY; J0295; J1815; J1815-GY; J1836